=== PATIENT | male | born 1940 | race Caucasian/White ===

== ENCOUNTER → 2018-03-13 | Outpatient (REF) | payer MEDICARE, OTHER | LOC: M LAB REF 15:50 | PROVIDERS: ATTEND Surgery | DX: S31.109D Unspecified open wound of abdominal wall, unspecified quadrant without penetration into peritoneal cavity, subsequent encounter (principal) ==

== ENCOUNTER → 2018-04-01 | Outpatient (CLI) | payer MEDICARE, OTHER ==
[~2018-04-01] MED LIST: LIDOCAINE 1% MDV 20ML VIAL As Ordered ONE
--- NOTE | 2018-04-01 19:26 | REP ---
ULTRASOUND-GUIDED ABDOMINAL ABSCESS DRAIN The procedure was performed under the direct supervision of Dr. Card. The patient has a history of A 7.7 x 3.9 x 5.8 cm fluid collection in the posterior aspect of the right rectus abdominis muscle seen on a previous CT scan from [facility] performed on 03/20/2018. The risks and benefits of the procedure were explained to the patient and informed consent was obtained. The right abdominal fluid collection was localized using ultrasound guidance. The skin was prepped and draped in a sterile fashion. 1% lidocaine was used as a local anesthetic. Using ultrasound guidance a 10-Faroese Skater APDL catheter was inserted using trocar technique. 40 ml of red colored or proteinaceous fluid was withdrawn and sent to lab for analysis. The cavity was flushed with a total of 30 ml of sterile saline. The catheter was affixed to the skin and a sterile dressing was applied. The catheter was affixed to a gravity drainage bag. The patient tolerated the procedure well and there were no immediate complications. After the appropriate amount of monitored convalescence the patient was discharged from the department. Reviewed by YVONNE Elliott 04/01/2018 03:58 P Electronically Signed by Ahmet Card MD 04/01/2018 07:17 P
== END ==
LOC: M RADPRO 12:38
PROVIDERS: ATTEND Surgery
DX: L02.219 Cutaneous abscess of trunk, unspecified (principal); Z88.8 Allergy status to other drugs, medicaments and biological substances; Z79.899 Other long term (current) drug therapy

== ENCOUNTER → 2018-04-29 | Outpatient (REF) | payer MEDICARE, OTHER | LOC: M LAB REF 14:29 | PROVIDERS: ATTEND Surgery | DX: L02.219 Cutaneous abscess of trunk, unspecified (principal) ==

== ENCOUNTER 2018-06-11 10:53 | Inpatient (IN) | payer MEDICARE, OTHER ==
[~2018-06-11] VITALS: Ht 175.3 cm; Wt 75.0 kg
[2018-06-11] VITALS (7 sets, daily range): BP systolic 135–163; BP diastolic 74–78
[~2018-06-11 10:53] MED LIST changes: +ALLO10TA PO; +AMLO10TA5 PO; +ASPI1TAB PO; +ENAL20TA PO; +ERTAPENEM SODIUM 1 GM in NS 50 ML IV ONE; +FINA5TAB2 PO; +FLOM0.4C39 PO; -LIDOCAINE 1% MDV 20ML VIAL As Ordered ONE; +LR 1,000 ML IV ONE; +METO1TAB7 PO; +MULTTAB PO; +OXYB15TA PO; +RANI15TA PO; +VITA500C24 PO; +[UNRECOGNIZED DRUG - CODE] PO
[2018-06-11 11:40] LABS: HEMATOCRIT 41.2 % (42.0-52.0); MEAN CORPUSCULAR HEMOGLOBIN 31.3 pg (27.0-33.0); PLATELET COUNT, AUTOMATED 217 10^3/uL (150-450); RED BLOOD COUNT 4.48 10^6/uL (4.30-6.10); WHITE BLOOD COUNT 7.6 10^3/uL (4.0-10.0)
[2018-06-11 12:12] LABS: BLOOD UREA NITROGEN 27 MG/DL (7-18); CALCIUM LEVEL 9.2 MG/DL (8.8-10.2); CARBON DIOXIDE LEVEL 28 MEQ/L (21-32); CHLORIDE LEVEL 109 MEQ/L (98-107); CREATININE FOR GFR 0.82 MG/DL (0.70-1.30); GLOMERULAR FILTRATION RATE > 60.0 (>42); GLUCOSE, FASTING 107 MG/DL (70-100); POTASSIUM SERUM 4.2 MEQ/L (3.5-5.1); SODIUM LEVEL 140 MEQ/L (136-145)
[2018-06-11] MEDS ORDERED: fentaNYL 100 MCG/2 ML INJECTION (J3010) As Ordered ONE ×3 (12:30→14:35)
[2018-06-11] MEDS ORDERED: ONDANSETRON 4MG/2ML VIAL (J2405) As Ordered ONE (12:30)
[2018-06-11] MEDS ORDERED: PROPOFOL 200 MG/20 ML VIAL As Ordered ONE (12:30)
[2018-06-11] MEDS ORDERED: BUPIVACAINE LIPOSOME/PF 1.3% 20ML VIAL (13.3MG/ML)(EXPAREL)(C9290 PER1MG) As Ordered ONE (12:51)
[2018-06-11] MEDS ORDERED: BUPIVACAINE HCL 0.25% 10 ML VIAL As Ordered ONE (13:56)
[2018-06-11] MEDS ORDERED: LIDOCAINE 2% INJ 100 MG/5 ML SDV (FOR ANES.) As Ordered ONE (14:10)
[2018-06-11] MEDS ORDERED: ROCURONIUM BROMIDE 50 MG/5 ML VIAL As Ordered ONE (14:10)
[2018-06-11] MEDS ORDERED: ONDANSETRON 4MG/2ML VIAL (J2405) IV PRN ×2 (14:30→15:00)
[2018-06-11] MEDS ORDERED: PROMETHAZINE INJ 25 MG/ML VIAL (J2550) IV PRN (14:30)
[2018-06-11] MEDS ORDERED: MORPHINE 4 MG/ML 1ML VIAL/SYRINGE (J2270) IV PRN ×2 (14:30)
[2018-06-11] MEDS: fentaNYL 100 MCG/2 ML INJECTION (J3010) IV PRN ×4 (14:35→15:02)
[2018-06-11] MEDS ORDERED: PERCOCET 5MG/325MG TAB As Ordered ONE (14:35)
[2018-06-11] MEDS ORDERED: METOCLOPRAMIDE INJ 10MG/2ML VIAL (J2765) IV PRN (15:00)
[2018-06-11] MEDS ORDERED: PERCOCET 5MG/325MG TAB PO PRN (15:00)
[2018-06-11] MEDS ORDERED: LR 1,000 ML IV SCH (15:00)
[2018-06-11] MEDS ORDERED: MEPERIDINE INJ 25 MG/ML VIAL (J2175) IV PRN (15:00)
[2018-06-11] MEDS: D5W/LR 1,000 ML IV SCH (17:45)
[2018-06-11] MEDS: DOCUSATE SODIUM 100 MG CAP PO SCH (21:11)
[2018-06-11] MEDS: NORCO, ANEXSIA 5/325MG TABLET (HYDROcodone/ACETAMINOPHEN) PO PRN (21:12)
[2018-06-12] VITALS (7 sets, daily range): BP systolic 145–183; BP diastolic 62–86
--- NOTE | 2018-06-12 01:00 | ECGEPIP ---
Stationary ECG Study [facility] Test Date: 2018-06-11 Pat Name: SANDRA MARCUS Department: Room: - Gender: M Collections Analyst: : [id number] Requested By: Rodrick Sam Order Number: [id number] Reading MD: Elia Fernández Measurements Intervals [place] Rate: 74 P: 61 CT: 170 QRS: 18 QRSD: 78 T: 38 QT: 370 QTc: 412 Interpretive Statements SINUS RHYTHM WITH OCCASIONAL VENTRICULAR PREMATURE COMPLEXES NO PRIOR TRACING IN THE SYSTEM Electronically Signed On 06-12-2018 1:00:40 EDT by Elia Fernández
[2018-06-12] MEDS: D5W/LR 1,000 ML IV SCH ×2 (01:08→09:00)
[2018-06-12] MEDS: NORCO, ANEXSIA 5/325MG TABLET (HYDROcodone/ACETAMINOPHEN) PO PRN ×4 (01:57→21:27)
[2018-06-12] MEDS: DOCUSATE SODIUM 100 MG CAP PO SCH ×2 (08:59→21:27)
[2018-06-12] MEDS ORDERED: VITMTA PO (11:57)
[2018-06-12] MEDS ORDERED: ZYLO300T6 PO (11:57)
[2018-06-12] MEDS ORDERED: ACET1TAB55 PO (11:58)
[2018-06-12] MEDS ORDERED: ACETAMINOPHEN 325 MG TAB PO PRN (13:15)
[2018-06-12] MEDS: ERTAPENEM SODIUM 1 GM in NS MINI-BAG PLUS 50 ML IV SCH (13:25)
[2018-06-12] MEDS ORDERED: ACETAMINOPHEN TAB 650MG DOSE (2X325MG) PO PRN (13:45)
[2018-06-12] MEDS: TAMSULOSIN 0.4 MG CAP PO SCH (14:13)
[2018-06-12] MEDS: FAMOTIDINE 20 MG TAB PO SCH ×2 (14:13→21:27)
[2018-06-12] MEDS: MULTIVITAMINS/MINERALS THERAP 1 TAB PO SCH (14:13)
[2018-06-12] MEDS: ASCORBIC ACID 500 MG TAB PO SCH (14:13)
[2018-06-12] MEDS: ASPIRIN 81 MG ENTERIC TAB PO SCH (14:14)
[2018-06-12] MEDS: ALLOPURINOL 300 MG TAB PO SCH (14:14)
[2018-06-12] MEDS: ENALAPRIL MALEATE 10 MG TAB PO SCH ×2 (14:18→21:28)
[2018-06-12] MEDS: METOPROLOL SUCC (TopROL XL) 50MG **XL** TAB PO SCH (14:19)
[2018-06-12] MEDS: amLODIPine 10 MG TAB PO SCH (14:19)
[2018-06-12] MEDS: oxyBUTYnin *DITROPAN XL* 5 MG TABCR PO SCH (21:27)
[2018-06-12] MEDS: FINASTERIDE 5 MG TAB PO SCH (21:28)
[2018-06-13] MEDS: NORCO, ANEXSIA 5/325MG TABLET (HYDROcodone/ACETAMINOPHEN) PO PRN ×3 (05:27→21:52)
[2018-06-13 06:00] VITALS: BP 138/67
[2018-06-13] MEDS: TAMSULOSIN 0.4 MG CAP PO SCH (08:55)
[2018-06-13] MEDS: DOCUSATE SODIUM 100 MG CAP PO SCH ×2 (08:55→21:52)
[2018-06-13] MEDS: ASCORBIC ACID 500 MG TAB PO SCH (08:55)
[2018-06-13] MEDS: SENNA 8.6 MG TAB (SENOKOT) PO SCH ×2 (08:56→21:51)
[2018-06-13] MEDS: MULTIVITAMINS/MINERALS THERAP 1 TAB PO SCH (08:56)
[2018-06-13] MEDS ORDERED: PREVNAR 13 VACCINE SYRINGE (CPT CODE:90670) IM ONE (09:00)
[2018-06-13] MEDS: METOPROLOL SUCC (TopROL XL) 50MG **XL** TAB PO SCH (09:00)
[2018-06-13] MEDS: ASPIRIN 81 MG ENTERIC TAB PO SCH (09:01)
[2018-06-13] MEDS: ALLOPURINOL 300 MG TAB PO SCH (09:01)
[2018-06-13] MEDS: ENALAPRIL MALEATE 10 MG TAB PO SCH ×2 (09:01→21:51)
[2018-06-13] MEDS: amLODIPine 10 MG TAB PO SCH (09:01)
[2018-06-13] MEDS: FAMOTIDINE 20 MG TAB PO SCH ×2 (09:01→21:52)
[2018-06-13] MEDS: ERTAPENEM SODIUM 1 GM in NS MINI-BAG PLUS 50 ML IV SCH (12:40)
[2018-06-13 14:00] VITALS: BP 120/58
[2018-06-13] MEDS: oxyBUTYnin *DITROPAN XL* 5 MG TABCR PO SCH (21:51)
[2018-06-13] MEDS: FINASTERIDE 5 MG TAB PO SCH (21:51)
[2018-06-13 22:00] VITALS: BP 132/64
[2018-06-14] MEDS: NORCO, ANEXSIA 5/325MG TABLET (HYDROcodone/ACETAMINOPHEN) PO PRN (05:58)
[2018-06-14 06:00] VITALS: BP 163/83
[2018-06-14] MEDS: SENNA 8.6 MG TAB (SENOKOT) PO SCH (08:24)
[2018-06-14] MEDS: ASCORBIC ACID 500 MG TAB PO SCH (08:24)
[2018-06-14] MEDS: amLODIPine 10 MG TAB PO SCH (08:24)
[2018-06-14] MEDS: ASPIRIN 81 MG ENTERIC TAB PO SCH (08:24)
[2018-06-14] MEDS: FAMOTIDINE 20 MG TAB PO SCH (08:24)
[2018-06-14] MEDS: ALLOPURINOL 300 MG TAB PO SCH (08:24)
[2018-06-14] MEDS: METOPROLOL SUCC (TopROL XL) 50MG **XL** TAB PO SCH (08:24)
[2018-06-14] MEDS: DOCUSATE SODIUM 100 MG CAP PO SCH (08:24)
[2018-06-14 08:25] VITALS: BP 163/83
[2018-06-14] MEDS: MULTIVITAMINS/MINERALS THERAP 1 TAB PO SCH (08:25)
[2018-06-14] MEDS: TAMSULOSIN 0.4 MG CAP PO SCH (08:25)
[2018-06-14] MEDS: ENALAPRIL MALEATE 10 MG TAB PO SCH (08:25)
[2018-06-14] MEDS ORDERED: NORCOTAB PO (10:25)
[2018-06-14] MEDS ORDERED: BACT400T PO (10:25)
--- NOTE | 2018-06-24 21:50 | RO ---
DATE OF PROCEDURE: 06/11/2018 PREOPERATIVE DIAGNOSES: 1. Umbilical abscess. 2. Umbilical hernia. 3. Right upper quadrant abscess. POSTOPERATIVE DIAGNOSES: 1. Umbilical abscess. 2. Umbilical hernia. 3. Right upper quadrant abscess. PROCEDURE: Incision and drainage of right subcostal abscess and repair of umbilical hernia and periumbilical abscess. SURGEON: Rodrick Mariano MD BELLY PACKER: ANESTHESIA: General endotracheal anesthesia. ESTIMATED BLOOD LOSS: Minimal. FLUIDS: Crystalloid. BRIEF PROCEDURE SUMMARY: The patient was taken to the operating room, was given general anesthesia. After adequate anesthesia and preoperative antibiotics were given, the patient was prepped and draped in the usual sterile fashion. Next, a right subcostal abscess was palpable, and there was still some purulent drainage. The patient had a drain placed, but this was an intraperitoneal drain and essentially at this point, the cutaneous drainage of this abscess, an elliptical incision was made around the abscess itself into some edematous tissue but not appearing infected or inflamed or indurated. This tissue was removed in its entirety and a palpated firm area underlying the muscle in this area was appreciated. Thus, a muscle-splitting but a partially transecting muscle incision was made in the obliques down into the cavity where the pigtail catheter was appreciated. The pigtail catheter was removed, and the cavity was palpated and indeed seemed attached to the umbilical area. Thus an elliptical incision around the previous umbilical abscess area was created with a skin knife. Electrocautery used to cut through dermis, underlying subcutaneous tissue down to some significant granulation tissue in this area. This was removed in its entirety and sent to pathology as well and using the hernia at the umbilicus, the peritoneum was entered and all adhesions were taken down and at this time, this was followed towards the abscess in the right upper quadrant area. There was this sinus tract that I debrided back and essentially transected at the level outside of the rectus muscle. It was following right up towards the right upper quadrant abscess. In any case, this was resected and the right upper quadrant abscess was curetted and also treated with electrocautery, that provided hemostasis. And once this was all cleaned up nicely, the #19 Derek-Yap drain was left in the bed of the dissection in the right upper quadrant. The muscle was closed in multiple layers over the drain in the right upper quadrant, brought out through a lateral stab incision, but the wound was left open and packed in this area. The umbilical site was closed with the hernia closed in [id number] interrupted sutures, and this was able to be brought together with some minimal tension but came together rather nicely. However, because of the infection in the right upper quadrant and the presumed sinus tract going to the umbilicus, I left this area open as well and packed this. A dry sterile dressing was placed over the incisions. The patient was awakened, extubated, brought to the recovery room awake, alert and hemodynamically stable. Sponge and needle counts correct times two.
--- NOTE | 2018-06-24 21:56 | DSES ---
DATE OF ADMISSION: 06/12/2018 DATE OF DISCHARGE: 06/14/2018 PRINCIPAL DIAGNOSIS: Right subcostal abscess, periumbilical abscess, and umbilical hernia. ASSOCIATED DIAGNOSES: Status post appendectomy. Status post hernia repair. Status post cholecystectomy, Status post ultrasound-guided abscess drainage. History of hypertension. History of gout. BRIEF HISTORY OF PRESENT ILLNESS: Patient is a 78-year-old male who presents with a periumbilical abscess that started last year and was taking care of this with some local dressing changes. However, developed acute onset of a right subcostal abscess and this required drainage. This was performed percutaneous but did not resolve and essentially on his most recent CT scan showed an umbilical hernia and what appeared to be a sinus tract going from the umbilicus towards the abscess in the right upper quadrant. Presents for definitive excision of these abscesses/sinus tract. HOSPITAL COURSE SUMMARY: The patient was admitted with the above diagnosis, was taken to the operating room where he underwent excision of both abscesses and the sinus tract, had the repair of umbilical hernia and postoperatively he had some good improvement over the first 24 hours and was started on a clear liquid diet, advanced to a regular diet prior to discharge. Eventually he was discharged home, having a wound VAC in place and doing well with the wound VAC. His medications include the following: Flomax, Zantac, oxybutynin, multivitamins, metoprolol, glucosamine, finasteride, enalapril, aspirin, vitamin C, amlodipine, allopurinol, Tylenol, as well as [place] and Bactrim. He was to follow up next Sunday for changing his wound VAC in the office and probable followup as well and thereafter will start receiving some home health wound care. He will follow up, as I stated, next Sunday and will contact our office if he is having any problems or concerns prior to that time.
== END 2018-06-14 11:50 | disposition home or self-care (01) | DRG 354 ==
LOC: M SDC 10:53 → M MS5PR 15:40 → M SDC 06-12 10:52 → M MS5PR 06-12 10:53
PROVIDERS: ADMIT Surgery; ATTEND Surgery
PROC: 0WQF0ZZ Repair Abdominal Wall, Open Approach (ICD-10-PCS; principal; 2018-06-11 13:10)
DX: K42.9 Umbilical hernia without obstruction or gangrene (principal); L02.211 Cutaneous abscess of abdominal wall; L03.316 Cellulitis of umbilicus; I10 Essential (primary) hypertension; M10.9 Gout, unspecified

== ENCOUNTER → 2018-07-18 | Outpatient (CLI) | payer MEDICARE, OTHER ==
[~2018-07-18] MED LIST changes: +ACET1TAB55 PO; -ASPI1TAB PO; +ASPI81TA26 PO; +BACT400T PO; -ERTAPENEM SODIUM 1 GM in NS 50 ML IV ONE; +HYDR-3715 PO; -LR 1,000 ML IV ONE; +VITMTA PO; +ZYLO300T6 PO
[2018-07-23 00:08] LABS: ANCA-ATYPICAL <1:20 titer (Neg:<1:20); CYTOPLASMIC NEUTROP AB ANCA-C <1:20 titer (Neg:<1:20); PERINUCLEAR AB ANCA-P <1:20 titer (Neg:<1:20)
[2018-07-24 08:36] LABS: ASPERGILLUS FLAVUS ABY Negative (Neg:<1:1); ASPERGILLUS FUMIGATUS ABY Negative (Neg:<1:1); ASPERGILLUS NIGER ABY Negative (Neg:<1:1); BLASTOMYCES ANTIBODY LEVEL Negative (Neg:<1:1); CRYPTOCOCCUS ANTIGEN SER Positive (Negative); CYCLIC CITRULLINATED PEPTIDE 5 units (0-19); HISTOPLASMOSIS ANTIBODY Negative (Neg:<1:1)
== END ==
LOC: M SMT 14:24
PROVIDERS: ATTEND Internal Medicine Pulmonary Disease
DX: R91.1 Solitary pulmonary nodule (principal)
CPT/HCPCS: 36415; 86200; 86256; 86431; 86480; 86606; 86612; 86635; 86698; 87899; G0463

== ENCOUNTER → 2018-07-30 | Outpatient (CLI) | payer MEDICARE, OTHER ==
--- NOTE | 2018-07-30 19:46 | REP ---
PET/CT: History: Solitary pulmonary nodule. 2.5 cm density right base on CT study [facility] July 05, 2018. Comparison is also made with prior abdomen CT studies from 20 March 2018 and April 16, 2018. On April 01, 2018, the patient underwent ultrasound-guided catheter abscess drainage procedure for an anterior abdominal wall abscess in the right upper quadrant of the abdomen. This abscess was visualized on the CT study from March 20, 2018. The gallbladder is surgically absent. The right lower lobe lung lesion was visible March 20, 2018 as well. TECHNIQUE: 47 minutes following the intravenous injection of a 10.37 mCi dose of F-18 FDG, three-dimensional PET scintigraphy is acquired from the skull base to the proximal thighs. Triplanar noncontrast CT scanning is acquired through the same anatomic range for attenuation correction, and image registration with scan parameters optimized to minimize radiation exposure to the patient. PET scintigraphy and CT datasets were fused and displayed on a workstation with multiplanar and projection display capability. PET/CT Findings: There are multiple areas of hypermetabolic uptake. The location of the previously identified and recently drained right anterior abdominal wall abscess shows hypermetabolic uptake in a linear area of soft tissue thickening. Maximum standard uptake value here is 3.58. The nodular density previously described as right lower lobe of the lung is again seen unchanged morphologically. This is pleural-based and may be focal thickening or hypertrophy of the diaphragm or pleura. It is hypermetabolic as well with maximum standard uptake value 7.19. There are multiple curvilinear areas of hypermetabolic uptake in thickened areas of the right diaphragm insertions laterally and posteriorly and posterolaterally. These are hypermetabolic as well with maximum standard uptake values ranging from 4.10 to 6.26. There is a normal-sized precarinal lymph node which is not hypermetabolic. No other abnormal hypermetabolic uptake is seen in the chest. Head and neck soft tissues are unremarkable. In the abdomen and pelvis, there is no abnormal hypermetabolic uptake. Left colonic diverticulosis is noted. There appear to be calcific densities in the gallbladder fossa. There is a healing rib fracture on the left anteriorly. Impression: Multiple foci of hypermetabolic uptake which appear to be related to areas of thickening in the right diaphragmatic leaf and its various insertions. The nodular density previously described in the right lower lobe may be a focal area of pleural thickening or diaphragmatic thickening related to this. It contains a few calcifications. These areas are ipsilateral and relatively close to a recently drained abdominal wall abscess. I favor an inflammatory or infectious etiology for these foci. Continued followup is advised. Electronically Signed by Ahmet Card MD 07/30/2018 10:38 P
== END ==
LOC: M PLARAD 13:42
PROVIDERS: ATTEND Internal Medicine Pulmonary Disease
DX: R91.1 Solitary pulmonary nodule (principal)
CPT/HCPCS: 78815; A9552